=== PATIENT | male | born 1955 | race Caucasian/White ===

== ENCOUNTER 2019-10-20 11:24 | Emergency (ER) | payer BC, OTHER ==
[2019-10-20] MEDS ORDERED: fentaNYL 100 MCG/2 ML SDV ONE (11:53)
[2019-10-20] MEDS: fentaNYL 100 MCG/2 ML SDV IVPUSH PRN ×2 (11:54→12:07)
[2019-10-20] MEDS ORDERED: Aspirin 325 MG Tab.EC PO ONE (12:07)
[2019-10-20] MEDS: Ondansetron 4 MG/2 ML SDV IVPUSH PRN ×2 (12:08→12:38)
[2019-10-20] MEDS ORDERED: Heparin Sodium 5,000 Units/ML Vial IVPUSH ONE (12:12)
[2019-10-20] MEDS ORDERED: Ondansetron 4 MG/2 ML SDV ONE (12:14)
[2019-10-20] MEDS ORDERED: Heparin Sodium/D5W 25,000 UNITS/500 ML BAG IV SCH ×2 (12:15→15:30)
[2019-10-20] MEDS ORDERED: Nitroglycerin/D5W 25 MG/250 ML BOTTLE IV SCH (12:15)
[2019-10-20] MEDS ORDERED: atorvaSTATin 80 MG Tab PO ONE (12:16)
[2019-10-20] MEDS: Tenecteplase 50 MG Kit IV STA ×2 (12:34→13:21)
[2019-10-20] MEDS ORDERED: Clopidogrel 75 MG Tab PO ONE (13:22)
[2019-10-20] MEDS ORDERED: Sodium Chloride 0.9% 1,000 ML IV SCH (13:30)
--- NOTE | 2019-10-20 14:02 | CT ---
Date of Service: 10/20/19 Clinical Data: chest pain ENHANCED CHEST CT: Multislice acquisition through the chest with IV contrast was performed. No priors. There is inadequate contrast opacification of the pulmonary arteries due to contrast bolus timing. PE cannot be excluded. No pleural effusions. No pneumothorax. No aortic aneurysm or dissection. The lungs are clear. No areas of consolidation. No hilar or mediastinal adenopathy. IMPRESSION: No significant abnormalities noted. The exam is, however nondiagnostic for PE. Repeat exam is recommended if PE suspicions persist. 251007 MTDD
--- NOTE | 2019-10-20 14:57 | EDM.PDOC ---
ED HPI GENERAL MEDICAL PROBLEM - General Chief Complaint: General Stated Complaint: PAIN NECK AND BACK Time Seen by Provider: 10/20/19 11:24 - History of Present Illness INITIAL COMMENTS - FREE TEXT/NARRATIVE: Shemar presents after experiencing the sudden onset of a tearing sensation between his shoulder blades. He described this as a very severe and sharp pain , and he had difficulty finding any sort of position that was comfortable. He had no associated diaphoresis, shortness of breath, or nausea. He notes that after quite a while, he may have developed a component in his central chest somewhat. He had no orthostasis. In response to his symptoms, he took a couple Advil, with no relief. He finally contacted his , and she is a spout tender for people at home, and immediately came to the house calling 911. In route, his EKG was suspicious for ST segment elevation. - Related Data Allergies Allergy/AdvReac Type Severity Reaction Status Date / Time No Known Allergies Allergy Verified 10/20/19 11:25 Past Medical History Cardiovascular History: Reports: Hypertension Endocrine/Metabolic History: Reports: Diabetes, Type II ED ROS GENERAL - Review of Systems Review Of Systems: Comprehensive ROS is negative, except as noted in HPI. ED EXAM, GENERAL - Physical Exam Exam: See Below Exam Limited By: No Limitations General Appearance: Alert, WD/WN, Moderate Distress Throat/Mouth: Normal Inspection, Normal Lips, Normal Voice, No Airway Compromise Head: Atraumatic, Normocephalic Neck: Normal Inspection, Supple, Non-Tender, Full Range of Motion Respiratory/Chest: No Respiratory Distress, Lungs Clear, Normal Breath Sounds Cardiovascular: Regular Rate, Rhythm, No Murmur GI/Abdominal: Normal Bowel Sounds, Soft, Non-Tender Back Exam: Normal Inspection Extremities: Normal Inspection, Non-Tender, No Pedal Edema, Normal Capillary Refill Neurological: Alert, Oriented, CN II-XII Intact, Normal Cognition, No Motor/ Sensory Deficits Psychiatric: Anxious Skin Exam: Warm, Dry Lymphatic: No Adenopathy Course - Vital Signs Text/Narrative:: Twelve-lead EKG was obtained which revealed definite ST elevation in the inferior leads. I immediately called all through to help arrange for transport. I faxed the EKG and the production line manager was kind enough to call with his input that this is a STEMI. I reviewed the history which sounds more suspicious for an aortic dissection, and he agreed that we should rule this out before initiating fibrinolysis. CT of the chest with contrast was completely normal, and he was provided with tenecteplase. Heparin and nitro drips were initiated after a heparin bolus of 4000 units IV. He was given a total of 150 mcg of fentanyl which resulted in pretty decent pain control, as well as premedicated with 4 mg of anti-onset drawn. Prior to fibrinolysis, I reviewed all the explicit exclusion criteria at the bedside with the patient and his . The flight team arrived, and he was packaged and discharged in good condition. Of note, he was loaded with 600 mg of clopidogrel and 324 mg of aspirin at the advice of the receiving production line manager. - Orders/Labs/Meds Orders: Active Orders 24 hr Category Date Time Status Cardiac Monitoring [RC] STAT Care 10/20/19 12:12 Active Communication Order [RC] Per Unit Routine Care 10/20/19 12:12 Active Communication Order [RC] Per Unit Routine Care 10/20/19 12:12 Active Oxygen Therapy [RC] ASDIRECTED Care 10/20/19 12:12 Active Heparin Sodium/D5W [Heparin 25,000 Units in D5W 500 ML] Med 10/20/19 12:15 Ordered 25,000 units in 500 ml IV TITRATE Nitroglycerin/D5W [Nitroglycerin 25 MG/D5W 250 ML] Med 10/20/19 12:15 Active 25 mg in 250 ml IV TITRATE Ondansetron [Zofran] Med 10/20/19 13:22 Active 4 mg IVPUSH Q4H PRN Sodium Chloride 0.9% [Normal Saline] 1,000 ml Med 10/20/19 13:30 Active IV ASDIRECTED fentaNYL [Sublimaze] Med 10/20/19 13:24 Ordered 50 mcg IVPUSH Q5M PRN Medication Orders Fentanyl (Sublimaze) 50 mcg IVPUSH Q5M PRN PRN Reason: Pain Heparin Sodium/Dextrose (Heparin 25,000 Units In D5w 500 Ml) 25,000 units in 500 mls @ 0 mls/hr IV TITRATE KEYON; Protocol Nitroglycerin/Dextrose (Nitroglycerin 25 Mg/D5w 250 Ml) 25 mg in 250 mls @ 3 mls/hr IV TITRATE KEYON; Protocol Sodium Chloride (Normal Saline) 1,000 mls @ 75 mls/hr IV ASDIRECTED KEYON Ondansetron HCl (Zofran) 4 mg IVPUSH Q4H PRN PRN Reason: Nausea/Vomiting Labs: Laboratory Tests 10/20/19 10/20/19 10/20/19 Range/Units 12:07 12:20 12:20 WBC 7.0 (4.0-11.0) K/uL RBC 4.87 (4.50-6.50) M/uL Hgb 15.3 (13.0-18.0) g/dL Hct 40.9 (40.0-54.0) % MCV 84 (76-96) fL MCH 31.4 (27.0-32.0) pg MCHC 37.4 H (31.0-35.0) g/dL RDW 12.6 (11.0-16.0) % Plt Count 277 (150-400) K/uL MPV 9.3 (6.0-10.0) fL Neut % (Auto) 80.9 H (45.0-70.0) % Lymph % (Auto) 12.4 L (20.0-40.0) % [place] % (Auto) 5.7 (3.0-10.0) % Eos % (Auto) 0.7 L (1.0-5.0) % Baso % (Auto) 0.3 (0.0-0.5) % Neut # (Auto) 5.68 (2.00-7.50) K/uL Lymph # (Auto) 0.87 L (1.50-4.00) K/uL [place] # (Auto) 0.40 (0.20-0.80) K/uL Eos # (Auto) 0.05 (0.04-0.40) K/uL Baso # (Auto) 0.02 (0.02-0.10) K/uL PT 10.4 (9.0-11.5) sec INR 1.1 (1.0-3.5) APTT 23.7 L (24.4-33.2) SECONDS Sodium 135 L (136-145) mmol/L Potassium 3.6 (3.5-5.1) mmol/L Chloride 99 (98-107) mmol/L Carbon Dioxide 19.3 L D (21.0-32.0) mmol/L Anion Gap 20.3 H (5.0-15.0) mmol/L BUN 19 D (8-26) mg/dL Creatinine 1.26 (0.70-1.30) mg/dL Est Cr Clr Drug Dosing TNP Estimated GFR (MDRD) 58 L (>60) MLS/MIN BUN/Creatinine Ratio 15.1 (6-25) Glucose 184 H D (74-100) mg/dL Calcium 9.5 (8.5-10.1) mg/dL Total Bilirubin 0.8 D (0.0-1.0) mg/dL AST 19 (15-37) U/L ALT 33 (12-78) U/L Alkaline Phosphatase 90 (46-116) U/L Troponin I 0.032 (0.000-0.060) ng/mL Total Protein 7.4 (6.4-8.2) g/dL Albumin 3.9 (3.4-5.0) g/dL Globulin 3.5 (2.2-4.2) g/dL Albumin/Globulin Ratio 1.1 (0.8-2.0) Blood Type Gel Antibody Screen Crossmatch 10/20/19 Range/Units 12:30 WBC (4.0-11.0) K/uL RBC (4.50-6.50) M/uL Hgb (13.0-18.0) g/dL Hct (40.0-54.0) % MCV (76-96) fL MCH (27.0-32.0) pg MCHC (31.0-35.0) g/dL RDW (11.0-16.0) % Plt Count (150-400) K/uL MPV (6.0-10.0) fL Neut % (Auto) (45.0-70.0) % Lymph % (Auto) (20.0-40.0) % [place] % (Auto) (3.0-10.0) % Eos % (Auto) (1.0-5.0) % Baso % (Auto) (0.0-0.5) % Neut # (Auto) (2.00-7.50) K/uL Lymph # (Auto) (1.50-4.00) K/uL [place] # (Auto) (0.20-0.80) K/uL Eos # (Auto) (0.04-0.40) K/uL Baso # (Auto) (0.02-0.10) K/uL PT (9.0-11.5) sec INR (1.0-3.5) APTT (24.4-33.2) SECONDS Sodium (136-145) mmol/L Potassium (3.5-5.1) mmol/L Chloride (98-107) mmol/L Carbon Dioxide (21.0-32.0) mmol/L Anion Gap (5.0-15.0) mmol/L BUN (8-26) mg/dL Creatinine (0.70-1.30) mg/dL Est Cr Clr Drug Dosing Estimated GFR (MDRD) (>60) MLS/MIN BUN/Creatinine Ratio (6-25) Glucose (74-100) mg/dL Calcium (8.5-10.1) mg/dL Total Bilirubin (0.0-1.0) mg/dL AST (15-37) U/L ALT (12-78) U/L Alkaline Phosphatase (46-116) U/L Troponin I (0.000-0.060) ng/mL Total Protein (6.4-8.2) g/dL Albumin (3.4-5.0) g/dL Globulin (2.2-4.2) g/dL Albumin/Globulin Ratio (0.8-2.0) Blood Type A POSITIVE Gel Antibody Screen Negative Crossmatch See Detail Meds: Medications Generic Name Dose Route Start Last Admin Trade Name Freq PRN Reason Stop Dose Admin Fentanyl 50 mcg 10/20/19 13:24 Sublimaze IVPUSH Q5M PRN Pain Heparin Sodium/Dextrose 25,000 units in 500 mls @ 0 mls/hr 10/20/19 12:15 Heparin 25,000 Units In D5w 500 Ml IV TITRATE KEYON Protocol 12 UNITS/KG/HR Nitroglycerin/Dextrose 25 mg in 250 mls @ 3 mls/hr 10/20/19 12:15 Nitroglycerin 25 Mg/D5w 250 Ml IV TITRATE KEYON Protocol 5 MCG/MIN Sodium Chloride 1,000 mls @ 75 mls/hr 10/20/19 13:30 Normal Saline IV ASDIRECTED KEYON Ondansetron HCl 4 mg 10/20/19 13:22 Zofran IVPUSH Q4H PRN Nausea/Vomiting Discontinued Medications Generic Name Dose Route Start Last Admin Trade Name Freq PRN Reason Stop Dose Admin Aspirin 325 mg 10/20/19 12:07 Ecotrin PO 10/20/19 12:08 ONETIME ONE Atorvastatin Calcium 80 mg 10/20/19 12:16 Lipitor PO 10/20/19 12:17 ONETIME ONE Clopidogrel Bisulfate 600 mg 10/20/19 13:22 Plavix PO 10/20/19 13:23 ONETIME ONE Fentanyl Confirm 10/20/19 11:53 10/20/19 13:21 Sublimaze Administered 10/20/19 11:54 Not Given Dose 200 mcg .ROUTE .STK-MED ONE Heparin Sodium (Porcine) 4,000 units 10/20/19 12:12 Heparin Sodium IVPUSH 10/20/19 12:13 BOLUS ONE Ondansetron HCl Confirm 10/20/19 12:14 10/20/19 13:21 Zofran Administered 10/20/19 12:15 Not Given Dose 8 mg .ROUTE .STK-MED ONE Tenecteplase 50 mg 10/20/19 12:08 Tnkase IV 10/20/19 12:09 NOW STA Protocol Departure - Departure Time of Disposition: 14:53 Disposition: DC/Tfer to Acute Hospital 02 Clinical Impression: MA, Myocardial infarction ST elevation MA (STEMI) Qualifiers: Involved coronary artery: other inferior wall coronary artery Qualified Code(s) : I21.19 - ST elevation (STEMI) myocardial infarction involving other coronary artery of inferior wall - Discharge Information Referrals: PCP,None [Primary Care Provider] - - My Orders Last 24 Hours: My Active Orders 10/20/19 12:12 Cardiac Monitoring [RC] STAT Communication Order [RC] Per Unit Routine Communication Order [RC] Per Unit Routine Oxygen Therapy [RC] ASDIRECTED 10/20/19 12:15 Heparin Sodium/D5W [Heparin 25,000 Units in D5W 500 ML] 25,000 units in 500 ml IV TITRATE Nitroglycerin/D5W [Nitroglycerin 25 MG/D5W 250 ML] 25 mg in 250 ml IV TITRATE 10/20/19 13:22 Ondansetron [Zofran] 4 mg IVPUSH Q4H PRN 10/20/19 13:24 fentaNYL [Sublimaze] 50 mcg IVPUSH Q5M PRN 10/20/19 13:30 Sodium Chloride 0.9% [Normal Saline] 1,000 ml IV ASDIRECTED - Assessment/Plan Last 24 Hours: My Active Orders 10/20/19 12:12 Cardiac Monitoring [RC] STAT Communication Order [RC] Per Unit Routine Communication Order [RC] Per Unit Routine Oxygen Therapy [RC] ASDIRECTED 10/20/19 12:15 Heparin Sodium/D5W [Heparin 25,000 Units in D5W 500 ML] 25,000 units in 500 ml IV TITRATE Nitroglycerin/D5W [Nitroglycerin 25 MG/D5W 250 ML] 25 mg in 250 ml IV TITRATE 10/20/19 13:22 Ondansetron [Zofran] 4 mg IVPUSH Q4H PRN 10/20/19 13:24 fentaNYL [Sublimaze] 50 mcg IVPUSH Q5M PRN 10/20/19 13:30 Sodium Chloride 0.9% [Normal Saline] 1,000 ml IV ASDIRECTED
[2019-10-20] MEDS ORDERED: fentaNYL 250 MCG/5 ML SDV IVPUSH ONE (15:16)
== END 2019-10-20 12:55 ==
LOC: LB.ED 11:24
DX: I25.119 Atherosclerotic heart disease of native coronary artery with unspecified angina pectoris (principal); E11.9 Type 2 diabetes mellitus without complications; I10 Essential (primary) hypertension
CPT/HCPCS: 36415; 71260; 80053; 84484; 85025; 85610; 85730; 86850; 86900; 86901; 93005; 96365; 96368; 96375; 96376; 99285; 99285-25; A0425; A0429; A9270-GY; J1644; J2405; J3010; J3101; J3490; J7030

== ENCOUNTER 2020-03-14 17:56 | Emergency (ER) | payer BC ==
--- NOTE | 2020-03-14 18:57 | EDM.PDOC ---
ED HPI GENERAL MEDICAL PROBLEM - General Chief Complaint: Laceration Stated Complaint: LACERATION Time Seen by Provider: 03/14/20 18:30 Source of Information: Reports: Patient History Limitations: Reports: No Limitations - History of Present Illness INITIAL COMMENTS - FREE TEXT/NARRATIVE: Pt was cutting wood with chain saw and it bucked back and cut just above his left knee superficially. No pain with ambulation, full ROM. States unsure of his last Tdap. Onset: Today, Sudden Onset Date: 03/14/20 Onset Time: 17:00 Location: Reports: Lower Extremity, Left Quality: Reports: Sharp Severity: Mild Improves with: Reports: Rest Worsens with: Reports: Movement Associated Symptoms: Reports: No Other Symptoms - Related Data Allergies Allergy/AdvReac Type Severity Reaction Status Date / Time No Known Allergies Allergy Verified 10/20/19 11:25 Past Medical History HEENT History: Reports: Other (See Below) Other HEENT History: Corneal replacements bilateral Cardiovascular History: Reports: Hypertension, Stents Endocrine/Metabolic History: Reports: Diabetes, Type II - Past Surgical History HEENT Surgical History: Reports: Eye Surgery Cardiovascular Surgical History: Reports: Coronary Artery Stent Social & Family History - Tobacco Use Smoking Status *Q: Former Smoker Used Tobacco, but Quit: Yes Month/Year Tobacco Last Used: 1979 Second Hand Smoke Exposure: Yes - Caffeine Use Caffeine Use: Reports: None - Alcohol Use Days Per Week of Alcohol Use: 1 Number of Drinks Per Day: 1 Total Drinks Per Week: 1 - Recreational Drug Use Recreational Drug Use: No Review of Systems - Review of Systems Review Of Systems: See Below Constitutional: Reports: No Symptoms Musculoskeletal: Reports: Leg Pain. Denies: Joint Pain, Joint Swelling, Muscle Pain, Muscle Stiffness Skin: Reports: Wound Neurological: Reports: No Symptoms Psychiatric: Reports: No Symptoms ED EXAM, GENERAL - Physical Exam Exam: See Below Exam Limited By: No Limitations General Appearance: Alert, WD/WN, No Apparent Distress Head: Atraumatic, Normocephalic Neck: Normal Inspection, Supple Respiratory/Chest: No Respiratory Distress, Lungs Clear Cardiovascular: Normal Peripheral Pulses, Regular Rate, Rhythm Back Exam: Normal Inspection Extremities: Normal Range of Motion, Non-Tender. No: Joint Swelling, Limited Range of Motion, Increased Warmth Neurological: Alert, Oriented, CN II-XII Intact, Normal Cognition Psychiatric: Normal Affect Skin Exam: Wound/Incision ED TRAUMA EXTREMITY PROCEDURES - Laceration/Wound Repair Left Upper Anterior Distal Leg Lac/Wound Length In cm: 5 Appearance: Superficial, Clean Distal NVT: Neuro & Vascular Intact, No Tendon Injury Anesthetic Type: Local Local Anesthesia - Lidocaine (Xylocaine): 1% with EPI Local Anesthetic Volume: 3cc Skin Prep: Providone-Iodine (Betadine) Saline Irrigation (cc's): 200 Exploration/Debridement/Repair: Wound Explored, In a Bloodless Field, Explored to Base Closed With: Mathew # of Sutures: 7 Course - Vital Signs Last Recorded V/S: Last Vital Signs Temp 96.7 F L 03/14/20 18:21 Pulse Resp 16 03/14/20 18:21 BP 155/95 H 03/14/20 18:21 Pulse Ox 99 03/14/20 18:21 - Orders/Labs/Meds Orders: Active Orders 24 hr Category Date Time Status Vaccines to be Administered [RC] PER UNIT ROUTINE Care 03/14/20 18:51 Active Meds: Medications Discontinued Medications Generic Name Dose Route Start Last Admin Trade Name Thu PRN Reason Stop Dose Admin Diphtheria/Tetanus/Acell Pertussis 0.5 ml 03/14/20 18:50 Boostrix IM 03/14/20 18:51 .ONCE ONE - Re-Assessments/Exams Free Text/Narrative Re-Assessment/Exam: 03/14/20 18:59 Superficial left anterior distal thigh laceration repaired with mathew; no complications Pt advised to have mathew removed in 10-12 days Watch for any sign of infection; redness, swelling, fever or pus Tdap given Departure - Departure Time of Disposition: 19:00 Disposition: Home, Self-Care 01 Condition: Good Clinical Impression: Laceration - Discharge Information *PRESCRIPTION DRUG MONITORING PROGRAM REVIEWED*: Not Applicable *COPY OF PRESCRIPTION DRUG MONITORING REPORT IN PATIENT STEFFANIE: Not Applicable Instructions: Laceration Care, Adult, [id number] Referrals: PCP,None [Primary Care Provider] - Sepsis Event Note (ED) - Evaluation Sepsis Screening Result: No Definite Risk - Focused Exam Vital Signs: Vital Signs Temp Resp BP Pulse Ox 03/14/20 18:21 96.7 F L 16 155/95 H 99 - My Orders Last 24 Hours: My Active Orders 03/14/20 18:51 Vaccines to be Administered [RC] PER UNIT ROUTINE - Assessment/Plan Last 24 Hours: My Active Orders 03/14/20 18:51 Vaccines to be Administered [RC] PER UNIT ROUTINE
[2020-03-14] MEDS: Diphtheria,Pertussis(Acell),Tetanus Vaccine 0.5 ML SDV IM ONE (19:02)
== END 2020-03-14 19:11 | disposition home or self-care (01) ==
LOC: LB.ED 17:56
DX: S71.112A Laceration without foreign body, left thigh, initial encounter (principal); I10 Essential (primary) hypertension; E11.9 Type 2 diabetes mellitus without complications; Z23 Encounter for immunization; Z95.5 Presence of coronary angioplasty implant and graft; Z87.891 Personal history of nicotine dependence; W29.3XXA Contact with powered garden and outdoor hand tools and machinery, initial encounter
CPT/HCPCS: 12002; 90471; 90715; 99282-25

== ENCOUNTER 2022-08-12 12:06 | Emergency (ER) | payer MEDICARE, BC ==
[2022-08-12 12:55] VITALS: PULSE 80
[2022-08-12] MEDS ORDERED: Labetalol 100 MG/20 ML MDV IVPUSH ONE ×2 (12:57→14:23)
[2022-08-12] MEDS ORDERED: Labetalol 100 MG/20 ML MDV ONE (13:10)
[2022-08-12 13:32] LABS: HEMOGLOBIN A1C 6.5 % (< 5.7)
[2022-08-12 13:46] VITALS: BP 165/88
== END 2022-08-12 13:15 | disposition home or self-care (01) ==
LOC: LB.ED 12:06
DX: I10 Essential (primary) hypertension (principal); E11.9 Type 2 diabetes mellitus without complications; Z79.82 Long term (current) use of aspirin; Z79.899 Other long term (current) drug therapy; Z79.84 Long term (current) use of oral hypoglycemic drugs
CPT/HCPCS: 36415; 71045; 80053; 83036; 84484; 85027; 85379; 93005; 93010; 96374; 96376; 99283; 99284-25; J3490

== ENCOUNTER 2025-02-08 09:51 | Emergency (ER) | payer MEDICARE ==
[2025-02-08 11:06] LABS: BASOPHILS ABSOLUTE AUTO 0.03 K/uL (0.02-0.10); BASOPHILS PERCENT AUTO 0.6 % (0.0-0.5); EOSINOPHILS ABSOLUTE AUTO 0.11 K/uL (0.04-0.40); EOSINOPHILS PERCENT AUTO 2.3 % (1.0-5.0); LYMPHOCYTES ABSOLUTE AUTO 1.01 K/uL (1.50-4.00); LYMPHOCYTES PERCENT AUTO 21.3 % (20.0-40.0); MEAN PLATELET VOLUME 10.0 fL (6.0-10.0); MONOCYTES ABSOLUTE AUTO 0.36 K/uL (0.20-0.80); MONOCYTES PERCENT AUTO 7.6 % (3.0-10.0); NEUTROPHILS ABSOLUTE AUTO 3.24 K/uL (2.00-7.50); NEUTROPHILS PERCENT AUTO 68.2 % (45.0-70.0); PLATELET COUNT,PLT 211 K/uL (150-400); RED BLOOD CELL COUNT 4.56 M/uL (4.50-6.50); RED CELL DISTRIBUTION WIDTH 12.1 % (11.0-16.0); WHITE BLOOD CELL COUNT,WBC 4.8 K/uL (4.0-11.0)
[2025-02-08 11:14] LABS: A/G RATIO 1.1 (0.8-2.0); ALANINE AMINOTRANSFERASE,ALT 31.0 U/L (12-78); ASPARTATE AMNIOTRANSFERASE,AST 13.0 U/L (15-37); BILIRUBIN TOTAL 0.9 mg/dL (0.0-1.0); BLOOD UREA NITROGEN,BUN 17.0 mg/dL (8-26); CARBON DIOXIDE,CO2 26.2 mmol/L (21.0-32.0); CHLORIDE,CL 103.0 mmol/L (98-107); CREATININE 1.02 mg/dL (0.70-1.30); EST CRCL DRUG DOSING (CG) 79.47 mL/min; ESTIMATED GFR 80.0 mL/min (>60); GLUCOSE RANDOM 211.0 mg/dL (74-100); POTASSIUM,K 4.0 mmol/L (3.5-5.1); PROTEIN TOTAL,TP 6.9 g/dL (6.4-8.2); SODIUM,NA 140.0 mmol/L (136-145)
[2025-02-08 11:30] LABS: INR 1.1 (1.0-3.5); PTT,PARTIAL THROMBOPLSTIN TIME 23.9 SECONDS (24.4-33.2)
== END 2025-02-08 13:30 | disposition home or self-care (01) ==
LOC: LB.ED 09:51
DX: M54.6 Pain in thoracic spine (principal); I10 Essential (primary) hypertension; E11.9 Type 2 diabetes mellitus without complications; Z79.82 Long term (current) use of aspirin; Z79.84 Long term (current) use of oral hypoglycemic drugs
CPT/HCPCS: 36415; 71250; 80053; 83735; 84484; 85025; 85379; 85610; 85730; 93005; 99284